=== PATIENT | female | born 1930 ===

== ENCOUNTER 2017-09-20 13:43 | Outpatient (CLI) | payer MEDICARE | END 2017-09-20 13:44 | disposition home or self-care (01) | LOC: BICMAMMO 13:43 | PROVIDERS: ATTEND Internal Medicine Medical Oncology | DX: Z78.0 Asymptomatic menopausal state (principal); C50.212 Malignant neoplasm of upper-inner quadrant of left female breast | CPT/HCPCS: 77080 ==

== ENCOUNTER 2017-09-22 12:09 | Emergency (ER) | payer MEDICARE, OTHER ==
[2017-09-22] MEDS ORDERED: Adacel (T-DAP) 0.5 ML VIAL ONE (13:05)
[2017-09-22] MEDS ORDERED: Lidocaine 1% (PF) 30 ML VIAL ONE (13:05)
[2017-09-22] MEDS ORDERED: cefTRIAXone\\ROCEPHIN 1 GM VIAL ONE (13:05)
[2017-09-22] MEDS ORDERED: Bacitracin Zinc 1 Packet ONE (14:08)
[2017-09-22] MEDS ORDERED: metroNIDAZOLE 250 MG TAB ONE (14:08)
== END 2017-09-22 14:18 | disposition home or self-care (01) ==
LOC: ERS 12:09
DX: S61.032A Puncture wound without foreign body of left thumb without damage to nail, initial encounter (principal); L03.114 Cellulitis of left upper limb; E03.9 Hypothyroidism, unspecified; I10 Essential (primary) hypertension; Z79.899 Other long term (current) drug therapy; W54.0XXA Bitten by dog, initial encounter
CPT/HCPCS: 90471; 90715; 96372; J0696; J2001

== ENCOUNTER 2018-05-24 14:21 | Emergency (ER) | payer MEDICARE, OTHER ==
[2018-05-24 14:50] LABS: #Lymphocytes 1.3 thou/uL (1.20-3.40); #Monocytes 0.5 thou/uL (0.11-0.59); #Neutrophils 1.5 thou/uL (1.40-6.50); %Eosinophils 0.3 % (0.0-10.0); %Lymphocytes 39.5 % (21.0-51.0); %Monocytes 14.5 % (0.0-10.0); %Neutrophils 44.7 % (42.0-75.0); Hemoglobin 12.5 g/dL (12.0-16.0); Mean Corpuscular HGB CONC 32.8 g/dL (32.0-36.0); Mean Corpuscular Hemoglobin 31.1 pg (27.0-31.0); Mean Corpuscular Volume 94.9 fL (78.0-98.0); Mean Platelet Volume 8.2 fL (7.4-10.4); Platelet Count 145 thou/uL (130-400); RBC Distribution Width 11.3 % (11.5-14.5); Red Blood Cell (RBC) Count 4.02 mill/uL (4.20-5.40); White Blood Cell (WBC) Count 3.3 thou/uL (4.8-10.8)
[2018-05-24 15:08] LABS: ALT (SGPT) 7 U/L (8-55); AST (SGOT) 18 U/L (5-34); Albumin 4.1 g/dL (3.4-4.8); Alkaline Phosphatase 74 U/L (40-150); Anion Gap 12 mmol/L (10-20); BUN (Urea Nitrogen) 16 mg/dL (9.8-20.1); Bilirubin, Total 0.3 mg/dL (0.2-1.2); Calc. Creatinine Clearance 0 mL/min (70-130); Calcium 10.4 mg/dL (7.8-10.44); Carbon Dioxide 28 mmol/L (23-31); Chloride 103 mmol/L (98-107); Estimated GFR-MDRD 65; Globulin 2.9 g/dL (2.4-3.5); Glucose 113 mg/dL (83-110); Potassium 4.1 mmol/L (3.5-5.1); Sodium 139 mmol/L (136-145)
--- NOTE | 2018-05-24 15:39 | RAD ---
PELVIS AP STANDARD: Date: 05/24/18 HISTORY: Fall. COMPARISON: None. FINDINGS: Posterior spinal fusion hardware L4-S1. There is either a vascular aneurysm to the distal aorta at L3 level versus a large exophytic bridging osteophyte. The obturator rings are intact. Mild narrowing of both hip joints. Acetabular osteophyte formation is present. Enthesopathic changes both hamstring tendons, as well as iliopsoas tendons. Moderate stool burden. IMPRESSION: 1. No acute fracture of the pelvis. 2. 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 Nonemergent ultrasound abdomen may be beneficial in this patient. POS: [facility]
--- NOTE | 2018-05-24 15:40 | RAD ---
LEFT HIP 2 VIEWS: Date: 05/24/18 HISTORY: Fall. COMPARISON: Pelvic radiograph same date. FINDINGS: No acute fracture or malalignment. Soft tissues unremarkable. IMPRESSION: No acute fracture or malalignment. POS: [facility]
--- NOTE | 2018-05-24 16:03 | CT ---
CT BRAIN WITHOUT CONTRAST: HISTORY: Altered mental status. Emergency exam. COMPARISON: CT brain 03/20/2014. FINDINGS: There is moderate atrophy. Moderate microvascular ischemic changes. Encephalomalacia right temporop arietal lobe. No acute hemorrhage or infarct. No midline shift or mass effect. Single prominent vessel within the right middle frontal sulcus. IMPRESSION: No acute intracranial abnormality. POS: [facility]
[2018-05-24 16:35] LABS: Bilirubin Negative (Negative); Blood, Urine Negative (Negative); Clarity CLEAR (Clear); Glucose, Urine (Dipstick) Negative (Negative); Leukocyte Large (Negative); Nitrite Negative (Negative); Protein, Urine (Dipstick) Negative (Neg-Trace); Specific Gravity, Urine 1.019 (1.002-1.036); Urobilinogen 0.2 mg/dL (0.2-1.0); pH, Urine 6.5 (5.0-9.0)
[2018-05-24 16:37] LABS: Bacteria/HPF None Seen HPF (None Seen); Pathc Cast-AUWi Flag 2.32 (0-2.49); RBC/HPF 0-3 HPF (0-3); Squamous Epithelial None Seen HPF (0-3)
[2018-05-24 16:42] LABS: Hyaline Casts/LPF 0-3 HYALINE CAST LPF (0-3 Hyaline)
[2018-05-24] MEDS ORDERED: cefTRIAXone\\ROCEPHIN 1 GM VIAL ONE (17:23)
[2018-05-24] MEDS ORDERED: Lidocaine 1% (PF) 30 ML VIAL ONE (17:23)
== END 2018-05-24 18:23 | disposition home health service, planned readmission (86) ==
LOC: ERS 14:21
DX: K13.0 Diseases of lips (principal); M25.511 Pain in right shoulder; B35.1 Tinea unguium; H11.429 Conjunctival edema, unspecified eye; N39.0 Urinary tract infection, site not specified; E78.5 Hyperlipidemia, unspecified; E03.9 Hypothyroidism, unspecified; I10 Essential (primary) hypertension; F41.9 Anxiety disorder, unspecified; F32.9 Major depressive disorder, single episode, unspecified
CPT/HCPCS: 36415; 51701; 70450; 72170; 80053; 81003; 81015; 85025; 87077; 87086; 87186; 96372; A4353; J0696; J2001